=== PATIENT | female | born 1995 | race Caucasian/White ===

== ENCOUNTER 2018-03-09 09:22 | Emergency (ER) | payer BC ==
[2018-03-09 10:22] VITALS: BP 123/79
--- NOTE | 2018-03-09 10:37 | ED ---
Laceration/Wound HPI - HPI Summary HPI Summary: Patient is a 22-year-old [id number] female presenting to the ED with a laceration to the left palmar side of the ring finger just distal to the MCP joint. She sustained an injury approximately 30 minutes [employer] by attempting to cut an avocado with a kitchen knife. She endorses profuse bleeding at home, but denies any bleeding on arrival. Denies any pain. She continues to be up to move about the extremity with full range of motion. Denies any numbness or tingling. Denies any color temperature changes. Tetanus is up-to-date. - History of Current Complaint Stated Complaint: LT FINGER LAC Time Seen by Provider: 03/09/18 09:38 Hx Obtained From: Patient Mechanism of Injury: Sharp/Blunt Trauma Onset/Duration: Sudden Onset Aggravating: Movement Alleviating: Compression Timing: Constant Onset Severity: Mild Current Severity: Mild Pain Intensity: 0 Pain Scale Used: 0-10 Numeric Associated Signs & Symptoms: Negative Related Hx: Dominant Hand (Right) - Allergy/Home Medications Allergies/Adverse Reactions: Allergies Allergy/AdvReac Type Severity Reaction Status Date / Time No Known Allergies Allergy Verified 03/09/18 09:30 Home Medications: Home Medications NK [No Home Medications Reported] 03/09/18 [History Confirmed 03/09/18] PMH/Surg Hx/FS Hx/Imm Hx Previously Healthy: Yes - Immunization History Date of Tetanus Vaccine: oct 2017 Hx Pertussis Vaccination: No Immunizations Up to Date: Yes Infectious Disease History: No Infectious Disease History: Denies: Traveled Outside the [place] in Last 30 Days - Social History Occupation: Unemployed Lives: With Family Alcohol Use: None Hx Substance Use: No Substance Use Type: Reports: None Hx Tobacco Use: No Smoking Status (MU): Never Smoked Tobacco Review of Systems Constitutional: Negative Negative: Fever, Chills, Fatigue Cardiovascular: Negative Respiratory: Negative Genitourinary: Negative Positive: no symptoms reported, see HPI Negative: Arthralgia, Myalgia Positive: Other - 2cm laceration . Negative: Rash, Bruising Negative: Headache, Weakness, Paresthesia Negative: Anxious, Depressed All Other Systems Reviewed And Are Negative: Yes Physical Exam Triage Information Reviewed: Yes Vital Signs On Initial Exam: Initial Vitals Temp Pulse Resp BP Pulse Ox 97.4 F 76 16 122/80 100 03/09/18 09:30 03/09/18 09:30 03/09/18 09:30 03/09/18 09:30 03/09/18 09:30 Vital Signs Reviewed: Yes Appearance: Positive: Well-Appearing, No Pain Distress, Well-Nourished Skin: Positive: Warm, Skin Color Reflects Adequate Perfusion, Other - 2cm laceration Head/Face: Positive: Normal Head/Face Inspection Eyes: Positive: EOMI, YESSICA Neck: Positive: Supple, No Lymphadenopathy Respiratory/Lung Sounds: Positive: Clear to Auscultation, Breath Sounds Present Cardiovascular: Positive: RRR, Pulses are Symmetrical in both Upper and Lower Extremities Musculoskeletal: Positive: Normal, Strength/ROM Intact Neurological: Positive: Speech Normal Psychiatric: Positive: Normal, Affect/Mood Appropriate AVPU Assessment: Alert Procedures - Laceration/Wound Repair 1 Location: upper extremity Description: Irregular Anesthesia: Local, 1.0% Betadine Prep?: No Irrigated w/ Saline (ccs): 20 Laceration/Wound Explored: clean Suture Type: Prolene Number of Sutures: 6 Layer Closure?: No Sterile Dressing Applied?: No Diagnostics - Vital Signs Vital Signs Temp Pulse Resp BP Pulse Ox 03/09/18 10:21 98.9 F 78 17 123/79 100 03/09/18 09:30 97.4 F 76 16 122/80 100 - Laboratory Lab Statement: Any lab studies that have been ordered have been reviewed, and results considered in the medical decision making process. Laceration Repair Course/Dx - Course Course Of Treatment: Patient is evaluated for left palmar side ring finger laceration. Laceration is approximately 2 cm in length, 0.5 cm in width and 0.2 cm in depth. Full range of motion. No evidence of tendon or bone involvement. The area was irrigated well with jet irrigation normal saline. Time out obtained. 2 ml lidocaine without epi used as digital block with good effect. 6, 4-0 Prolene sutures placed. Patient tolerated well. Antibiotic ointment applied and gauze wrapped. Suture removal in 7 days. Tetanus was up to date. Assessment/Plan: Suture removal in 7 days - Clinical Impression Provider Diagnoses: Laceration Discharge - Sign-Out/Discharge Documenting (check all that apply): Discharge/Admit/Transfer - Discharge Plan Condition: Stable Disposition: HOME Patient Education Materials: Care For Your Stitches (ED), Laceration (ED) Referrals: [facility] - Luciano HWANG [Primary Care Provider] - Additional Instructions: Suture removal in 5-7 days Take bandage off tomorrow Ibuprofen for any discomfort Leave open to air - Billing Disposition and Condition Condition: STABLE Disposition: HOME Images - Images Hands: 1 - laceration
== END 2018-03-09 10:21 | disposition home or self-care (01) ==
LOC: ED 09:22
DX: S61.215A Laceration without foreign body of left ring finger without damage to nail, initial encounter (principal); W26.0XXA Contact with knife, initial encounter; Y92.9 Unspecified place or not applicable
CPT/HCPCS: 12001; 99282